=== PATIENT | female | born 1960 | race Two or more races ===

== ENCOUNTER 2016-10-06 19:12 | Emergency (ER) | payer OTHER ==
--- NOTE | 2016-10-06 19:39 | NUR ---
Called for triage, no answer.
--- NOTE | 2016-10-06 19:48 | NUR ---
called for triage, no one in [place].
--- NOTE | 2016-10-06 19:59 | NUR ---
Called to triage, no answer. LWBT.
== END 2016-10-06 20:00 | disposition left against medical advice (07) ==
LOC: ER 19:14
DX: Z53.21 Procedure and treatment not carried out due to patient leaving prior to being seen by health care provider (principal)